=== PATIENT | male | born 1970 | race Hispanic/Latino ===

== ENCOUNTER → 2025-04-06 | Day surgery (SDC) | payer BC ==
[~2025-04-06] MED LIST: LIDOCAINE HCL 2% LOCAL INJ 5 ML SDV VIAL INJ ONE; PROPOFOL IV EMULSION 10 MG/ML 20 ML VIAL ONE; PROPOFOL IV EMULSION 50 ML IV ONE
[2025-04-06] MEDS: LACTATED RINGER'S 1,000 ML ONE (10:19)
[2025-04-06 12:30] VITALS: TEMP 97.4
[2025-04-06 13:10] VITALS: BP 113/86; PULSE 70; RESP 16; O2SAT 96
== END | disposition home or self-care (01) ==
LOC: OR 09:34
PROVIDERS: ATTEND Internal Medicine Gastroenterology
DX: K29.50 Unspecified chronic gastritis without bleeding (principal); D12.3 Benign neoplasm of transverse colon; K20.90 Esophagitis, unspecified without bleeding; K21.9 Gastro-esophageal reflux disease without esophagitis; K64.8 Other hemorrhoids; M54.2 Cervicalgia; M54.9 Dorsalgia, unspecified; Z01.810 Encounter for preprocedural cardiovascular examination
CPT/HCPCS: 43239; 45385; 93005; J2003; J2470; J2704 ×2; J7121; 45378